=== PATIENT | male | born 1975 | race Caucasian/White ===

== ENCOUNTER 2016-09-04 00:11 | Emergency (ER) | payer MEDICAID ==
[~2016-09-04] VITALS: Ht 170.2 cm; Wt 81.3 kg
[2016-09-04 01:04] VITALS: BP 139/74
== END 2016-09-04 01:06 | disposition home or self-care (01) ==
LOC: ED 01:00
DX: K08.89 Other specified disorders of teeth and supporting structures (principal); L03.211 Cellulitis of face; F17.210 Nicotine dependence, cigarettes, uncomplicated
CPT/HCPCS: 99283

== ENCOUNTER 2018-03-19 20:06 | Emergency (ER) | payer MEDICAID, OTHER ==
[~2018-03-19] VITALS: Ht 172.7 cm; Wt 81.0 kg
[2018-03-19 20:08] VITALS: BP 153/94
[2018-03-19] MEDS ORDERED: PROPARACAINE OPHTH 0.5%, 15ML ONE (20:24)
== END 2018-03-19 20:51 | disposition home or self-care (01) ==
LOC: ED 20:20
DX: H10.33 Unspecified acute conjunctivitis, bilateral (principal)
CPT/HCPCS: 99283

== ENCOUNTER 2018-03-21 23:39 | Emergency (ER) | payer OTHER ==
[~2018-03-21] VITALS: Ht 172.7 cm; Wt 81.7 kg
[2018-03-21 23:41] VITALS: BP 132/86
[2018-03-22] MEDS ORDERED: PROPARACAINE OPHTH 0.5%, 15ML ONE (00:01)
[2018-03-22] MEDS ORDERED: HYDROcodone/APAP 5/325 TABLET ONE (00:12)
[2018-03-22] MEDS ORDERED: HYDROcodone/APAP 5/325 TABLET PO ONE (00:30)
[2018-03-22] MEDS ORDERED: DIPHENHYDRAMINE 50 MG CAPSULE ONE (00:54)
[2018-03-22] MEDS ORDERED: DIPHENHYDRAMINE 25 MG CAPSULE PO ONE (01:00)
[2018-03-22] MEDS ORDERED: NAPHAZOLINE/PHENIRAMINE OPHTH RIGHTEYE ONE (01:00)
== END 2018-03-22 01:32 | disposition home or self-care (01) ==
LOC: ED 03-22 01:29
DX: H10.31 Unspecified acute conjunctivitis, right eye (principal); B97.89 Other viral agents as the cause of diseases classified elsewhere
CPT/HCPCS: 99283; Q0163

== ENCOUNTER 2020-06-19 08:21 | Emergency (ER) | payer OTHER ==
[~2020-06-19] VITALS: Ht 167.6 cm; Wt 81.8 kg
[2020-06-19] MEDS ORDERED: SODIUM CHLORIDE FLUSH 10ML SYR IVF ONE (09:00)
[2020-06-19 09:38] LABS: BASOPHILS % (AUTO) 1 % (0-1); EOSINOPHILS % (AUTO) 1 % (1-7); LYMPHOCYTES % (AUTO) 10 % (22-44); MEAN CORPUSCULAR HEMOGLOBIN 30.2 pg (27.5-34.5); MEAN CORPUSCULAR HGB CONC 33.6 g/dL (33.2-36.2); MONOCYTES % (AUTO) 5 % (2-9); NEUTROPHILS % (AUTO) 85 % (42-75); PLATELET COUNT 311 x10^3/uL (130-400); RED BLOOD COUNT 5.11 x10^6/uL (4.38-5.82); RED CELL DISTRIBUTION WIDTH 13.7 % (9.4-14.8)
[2020-06-19 09:42] LABS: MD NO
[2020-06-19 09:44] LABS: ALANINE AMINOTRANSFERASE 45 U/L (12-78); ALBUMIN 4.2 g/dL (3.4-5.0); ANION GAP 4 mmol/L (5-15); CALCIUM 9.2 mg/dL (8.5-10.1); CHLORIDE 107 mmol/L (98-107); CREATININE 1.06 mg/dL (0.7-1.3)
[2020-06-19 09:47] LABS: ALKALINE PHOSPHATASE 87 U/L (45-117); BILIRUBIN,TOTAL 0.3 mg/dL (0.2-1.0); TOTAL PROTEIN 7.9 g/dL (6.4-8.2)
--- NOTE | 2020-06-19 11:05 | NUR ---
PT IN BED , [facility]A SENT TO LAB,
[2020-06-19 11:19] LABS: MICROSCOPIC AUTO
[2020-06-19] MEDS ORDERED: OMNIPAQUE 350 MG/ML, 100ML BOTTLE ONE (11:28)
--- NOTE | 2020-06-19 11:49 | NUR ---
PT IN BED, NO DISTRESS,
[2020-06-19 13:24] VITALS: BP 154/96
== END 2020-06-19 13:42 | disposition home or self-care (01) ==
LOC: ED 09:28
DX: N13.2 Hydronephrosis with renal and ureteral calculous obstruction (principal); R31.9 Hematuria, unspecified; R10.31 Right lower quadrant pain; K59.00 Constipation, unspecified; F17.200 Nicotine dependence, unspecified, uncomplicated
CPT/HCPCS: 36415; 74177; 80053; 81001; 83690; 85025; 99285; Q9967